=== PATIENT | male | born 1965 | race Caucasian/White ===

== ENCOUNTER 2018-03-20 19:50 | Emergency (ER) | payer OTHER ==
[2018-03-20] MEDS: DIAZEPAM 5 MG TAB PO (21:41)
[2018-03-20 21:42] LABS: URINE BLOOD (Dip) POC Negative (NEGATIVE); URINE GLUCOSE (Dip) POC Negative (NEGATIVE); URINE KETONES (Dip) POC Negative (NEGATIVE); URINE LEUKOCYTE EST (Dip) POC Negative (NEGATIVE); URINE NITRITE (Dip) POC Negative (NEGATIVE); URINE TOTAL PROTEIN POC Negative (NEGATIVE)
[2018-03-20] MEDS: KETOROLAC 30 MG INJ IM (21:42)
== END 2018-03-20 22:48 | disposition home or self-care (01) ==
LOC: FTE 19:50
DX: S30.0XXA Contusion of lower back and pelvis, initial encounter (principal); R40.2412 Glasgow coma scale score 13-15, at arrival to emergency department; V49.40XA Driver injured in collision with unspecified motor vehicles in traffic accident, initial encounter
CPT/HCPCS: 81003; 96372; 99284-25